=== PATIENT | female | born 2000 | race Two or more races ===

== ENCOUNTER 2019-10-02 10:21 | Emergency (ER) | payer MEDICAID ==
[2019-10-02] MEDS ORDERED: Azithromycin 500 MG in Sodium Chloride 0.9% 250 ML IV ONE (11:10)
[2019-10-02] MEDS ORDERED: Sodium Chloride 0.9% 1,000 ML IV SCH (11:15)
--- NOTE | 2019-10-02 11:15 | EDM.PDOC ---
ED HPI GENERAL MEDICAL PROBLEM - General Chief Complaint: Fever Stated Complaint: DOESN'T FEEL GOOD Time Seen by Provider: 10/02/19 11:02 Source of Information: Reports: Patient History Limitations: Reports: No Limitations - History of Present Illness INITIAL COMMENTS - FREE TEXT/NARRATIVE: has been ill for 3 days , with cough , fever , body aches and pain Was vomiting initially and not able to keep anything down has not had BM for 3 days cough is productive of thick greenish phlegm did not get flu vaccine Onset: Gradual Onset Date: 09/29/19 Duration: Day(s): Location: Reports: Chest Quality: Reports: Ache Severity: Moderate Associated Symptoms: Reports: Chest Pain, Cough, Diaphoresis, Fever/Chills, Headaches, Loss of Appetite, Malaise, Nausea/Vomiting Treatments QUALITY IMPROVEMENT CONSULTANT: Reports: Acetaminophen - Related Data Allergies Allergy/AdvReac Type Severity Reaction Status Date / Time No Known Allergies Allergy Verified 10/02/19 11:07 Home Meds: Home Meds Azithromycin [Zithromax] 250 mg PO DAILY 4 Days #4 tab 10/02/19 [Rx] Cetirizine [ZyrTEC] 10 mg PO DAILY #30 tab 10/02/19 [Rx] Oseltamivir [Tamiflu] 75 mg PO BID #10 cap 10/02/19 [Rx] guaiFENesin [Mucinex] 600 mg PO BID #10 tab.er 10/02/19 [Rx] Past Medical History - Past Health History Medical/Surgical History: Denies Medical/Surgical History Social & Family History - Caffeine Use Caffeine Use: Reports: Soda ED ROS ENT - Review of Systems Review Of Systems: See Below Constitutional: Reports: Fever, Chills, Malaise, Weakness HEENT: Reports: Rhinitis, Throat Pain, Throat Swelling Respiratory: Reports: Cough, Sputum (greenish) Cardiovascular: Reports: No Symptoms Endocrine: Reports: No Symptoms GI/Abdominal: Reports: Abdominal Pain, Anorexia, Decreased Appetite : Reports: No Symptoms Musculoskeletal: Reports: Shoulder Pain, Back Pain, Joint Pain, Muscle Pain Skin: Reports: No Symptoms Neurological: Reports: No Symptoms Psychiatric: Reports: No Symptoms ED EXAM, ENT - Physical Exam Exam: See Below Exam Limited By: No Limitations General Appearance: Alert, WD/WN, No Apparent Distress Eye Exam: Bilateral Eye: EOMI Ears: Normal TMs Nose: Clear Rhinorrhea, Nasal Discharge Mouth/Throat: Normal Inspection, Dry Mucous Membrane Head: Atraumatic, Normocephalic Neck: Supple, Full Range of Motion Respiratory/Chest: Lungs Clear, Normal Breath Sounds Cardiovascular: Regular Rate, Rhythm Back: Full Range of Motion. No: CVA Tenderness (R), CVA Tenderness (L) Extremities: Normal Range of Motion Neurological: Alert, Oriented, CN II-XII Intact Psychiatric: Normal Affect Skin: Warm Course - Vital Signs Last Recorded V/S: Last Vital Signs Temp 38.1 C 10/02/19 11:05 Pulse 7 L 10/02/19 11:05 Resp 18 10/02/19 11:05 BP 123/77 10/02/19 11:05 Pulse Ox 99 10/02/19 11:05 - Orders/Labs/Meds Orders: Active Orders 24 hr Category Date Time Status Chest 2V [CR] Stat Exams 10/02/19 11:11 Taken Potassium Chloride [Klor-Con M20] Med 10/02/19 13:11 Once 40 meq PO ONETIME ONE Sodium Chloride 0.9% [Normal Saline] 1,000 ml Med 10/02/19 11:15 Active IV ASDIRECTED Medication Orders Sodium Chloride (Normal Saline) 1,000 mls @ 999 mls/hr IV ASDIRECTED JOHN Last Admin: 10/02/19 11:51 Dose: 999 mls/hr Potassium Chloride (Klor-Con M20) 40 meq PO ONETIME ONE Stop: 10/02/19 13:12 Labs: Laboratory Tests 10/02/19 10/02/19 Range/Units 11:35 11:35 WBC 10.0 (4.5-12.0) X10-3/uL RBC 4.54 (3.23-5.20) x10(6)uL Hgb 13.4 (11.5-15.5) g/dL Hct 40.3 (30.0-51.3) % MCV 88.6 (80-96) fL MCH 29.5 (27.7-33.6) pg MCHC 33.3 (32.2-35.4) g/dL RDW 12.7 (11.5-15.5) % Plt Count 333 (125-369) X10(3)uL MPV 7.4 (7.4-10.4) fL Neut % (Auto) 78.0 (46-82) % Lymph % (Auto) 9.3 L (13-37) % [place] % (Auto) 11.8 (4-12) % Eos % (Auto) 0 L (1.0-5.0) % Baso % (Auto) 1 (0-2) % Neut # (Auto) 7.8 (1.6-8.3) # Lymph # (Auto) 0.9 (0.6-5.0) # [place] # (Auto) 1.2 (0.0-1.3) # Eos # (Auto) 0.0 (0.0-0.8) # Baso # (Auto) 0.1 (0.0-0.2) # Sodium 139 (135-145) mmol/L Potassium 3.4 L (3.5-5.3) mmol/L Chloride 100 (100-110) mmol/L Carbon Dioxide 26 (21-32) mmol/L BUN 8 (7-18) mg/dL Creatinine 0.8 (0.55-1.02) mg/dL Est Cr Clr Drug Dosing TNP Estimated GFR (MDRD) > 60 (>60) BUN/Creatinine Ratio 10.0 (9-20) Glucose 104 (80-116) mg/dL Calcium 9.0 (8.6-10.2) mg/dL Meds: Medications Generic Name Dose Route Start Last Admin Trade Name Freq PRN Reason Stop Dose Admin Sodium Chloride 1,000 mls @ 999 mls/hr 10/02/19 11:15 10/02/19 11:51 Normal Saline IV 999 mls/hr ASDIRECTED JOHN Administration Potassium Chloride 40 meq 10/02/19 13:11 Klor-Con M20 PO 10/02/19 13:12 ONETIME ONE Discontinued Medications Generic Name Dose Route Start Last Admin Trade Name Freq PRN Reason Stop Dose Admin Acetaminophen 1,000 mg 10/02/19 11:52 10/02/19 12:00 Tylenol Extra Strength PO 10/02/19 11:53 1,000 mg ONETIME ONE Administration Acetaminophen 1,000 mg 10/02/19 11:53 Tylenol Extra Strength PO 10/02/19 11:54 ONETIME ONE Azithromycin 500 mg/ Sodium 250 mls @ 250 mls/hr 10/02/19 11:10 10/02/19 11: 59 Chloride IV 10/02/19 12:09 250 mls/hr ONETIME ONE Administration Departure - Departure Time of Disposition: 13:25 Disposition: Home, Self-Care 01 Clinical Impression: Influenza B, Bronchitis, Bronchitis after surgery - Discharge Information *PRESCRIPTION DRUG MONITORING PROGRAM REVIEWED*: Not Applicable *COPY OF PRESCRIPTION DRUG MONITORING REPORT IN PATIENT KENNEDY: Not Applicable Instructions: Influenza, Adult Referrals: Rodriguez Jj MD [Primary Care Provider] - Forms: ED Department Discharge Sepsis Event Note - Focused Exam Vital Signs: Vital Signs Temp Pulse Resp BP Pulse Ox 10/02/19 11:05 38.1 C 7 L 18 123/77 99 Date Exam was Performed: 10/02/19 Time Exam was Performed: 13:11 - My Orders Last 24 Hours: My Active Orders 10/02/19 11:11 Chest 2V [CR] Stat 10/02/19 11:15 Sodium Chloride 0.9% [Normal Saline] 1,000 ml IV ASDIRECTED 10/02/19 13:11 Potassium Chloride [Klor-Con M20] 40 meq PO ONETIME ONE - Assessment/Plan Last 24 Hours: My Active Orders 10/02/19 11:11 Chest 2V [CR] Stat 10/02/19 11:15 Sodium Chloride 0.9% [Normal Saline] 1,000 ml IV ASDIRECTED 10/02/19 13:11 Potassium Chloride [Klor-Con M20] 40 meq PO ONETIME ONE
[2019-10-02 11:18] VITALS: BP 123/77; PULSE 7
[2019-10-02] MEDS ORDERED: Acetaminophen 500 MG Tab PO ONE ×2 (11:52→11:53)
[2019-10-02] MEDS ORDERED: Potassium Chloride 20 MEQ Tab.ER PO ONE (13:11)
--- NOTE | 2019-10-03 11:15 | CR ---
INDICATION: Cough and fever. CHEST, 2 VIEWS: PA and lateral views of the chest were obtained, 10/02/19, and compared with 07/13/16, revealing the heart to remain normal in size and shape. No consolidating pneumonia or effusion was seen. However, there is bronchial wall cuffing of [id number] degree at the lung bases, which may represent active peribronchial disease and should be correlated clinically. There was also noted a mild dextroconvex scoliosis of the mid-thoracic spine, which is perhaps very slightly increased in severity compared with the previous study. IMPRESSION: 1. Bronchial wall cuffing, which may represent active peribronchial disease and should be correlated clinically. 2. Mild scoliosis, perhaps very slightly increased compared with 2016. MTDD
== END 2019-10-02 14:20 | disposition home or self-care (01) ==
LOC: FB.ED 10:21
DX: J10.1 Influenza due to other identified influenza virus with other respiratory manifestations (principal); Z79.899 Other long term (current) drug therapy
CPT/HCPCS: 36415; 71046; 80048; 85025; 87804; 96365; 99283; A9270; J0456; J7030; J7050

== ENCOUNTER 2022-01-11 07:32 | Emergency (ER) | payer SELFPAY ==
[2022-01-11 07:51] VITALS: BP 117/73; PULSE 96
[2022-01-11] MEDS: Cephalexin 500 MG Cap PO ONE (09:00)
[2022-01-14 08:13] LABS: IRON BIND.CAP.(TIBC) 460 ug/dL (250-450); IRON SATURATION 3 % (15-55); IRON, SERUM 13 ug/dL (27-159); UIBC 447 ug/dL (131-425)
== END 2022-01-11 10:30 | disposition home or self-care (01) ==
LOC: FB.ED 07:32
DX: L03.031 Cellulitis of right toe (principal); D64.9 Anemia, unspecified; Z79.899 Other long term (current) drug therapy
CPT/HCPCS: 36415; 82728; 83540; 83550; 85025; 99281; 99283; A9270-GY

== ENCOUNTER 2022-03-29 06:20 | Emergency (ER) | payer OTHER ==
[2022-03-29] MEDS ORDERED: Ketorolac 30 MG/ML SDV IM ONE (07:21)
[2022-03-29] MEDS ORDERED: Acetaminophen/HYDROcodone 325-5 MG Tab PO ONE (07:22)
[2022-03-29 08:02] VITALS: BP 122/80; PULSE 76
== END 2022-03-29 07:56 | disposition home or self-care (01) ==
LOC: FB.ED 06:20
DX: S67.22XA Crushing injury of left hand, initial encounter (principal); W23.1XXA Caught, crushed, jammed, or pinched between stationary objects, initial encounter; Y99.0 Civilian activity done for income or pay
CPT/HCPCS: 29125; 73130; 96372; 99000; 99283; A9270; J1885